=== PATIENT | female | born 1975 ===

== ENCOUNTER 2017-05-21 06:46 | Day surgery (SDC) | payer OTHER ==
[2017-05-17 10:07] VITALS: BMI 42.9
[2017-05-21] MEDS ORDERED: Silver Nitrate Topical - Stick ONE (07:10)
[2017-05-21] MEDS ORDERED: Strong Iodine Topical Sol. 5%-10% ONE (07:10)
[2017-05-21] MEDS ORDERED: Ferric Subsulfate Sol(60 mL) ONE (07:11)
[2017-05-21] MEDS ORDERED: ACETIC ACID 3% 30 ML LIQUID MC ONE (07:11)
[2017-05-21 07:19] VITALS: O2SAT 99
[2017-05-21 08:14] LABS: BASO # 0.1 K/uL (0.0-0.2); BASO % 0.8 % (0.0-2.0); EOS # 0.2 K/uL (0.0-0.7); EOS % 2.3 % (0.0-4.0); HEMATOCRIT 35.9 % (34.0-47.0); LYMPH # 2.7 K/uL (1.0-4.3); LYMPH % 30.9 % (20.0-40.0); MEAN CELL VOLUME 78.6 fl (81.0-99.0); MEAN CORPUSCULAR HEMOGLOBIN 25.4 pg (27.0-31.0); MEAN CORPUSCULAR HGB CONC 32.4 g/dL (33.0-37.0); MEAN PLATELET VOLUME 7.7 fl (7.2-11.7); MONO # 0.5 K/uL (0.0-0.8); MONO % 6.2 % (0.0-10.0); NEUT # 5.2 K/uL (1.8-7.0); NEUT % 59.8 % (50.0-75.0); RED CELL DISTRIBUTION WIDTH 15.1 % (11.5-14.5); WHITE BLOOD COUNT 8.6 K/uL (4.8-10.8)
[2017-05-21 08:40] LABS: BLOOD UREA NITROGEN 17 mg/dl (7-17); CALCIUM 8.8 mg/dL (8.4-10.2); CARBON DIOXIDE 23 mmol/L (22-30); CHLORIDE 106 mmol/L (98-107); GFR AFRICAN-AMERICAN > 60; GLUCOSE,RANDOM 105 mg/dL (65-105); POTASSIUM 4.5 MMOL/L (3.6-5.0); SODIUM 136 mmol/l (132-148)
[2017-05-21] MEDS ORDERED: Propofol 10 mg/ml Inj (20 ML) ONE (08:51)
[2017-05-21] MEDS ORDERED: Midazolam 2 MG/2 ML VIAL ONE (08:52)
[2017-05-21] MEDS ORDERED: Lactated Ringer's 1,000 ML IV ONE (09:05)
--- NOTE | 2017-05-21 09:10 | CP.SDSHP ---
Same Day Surgery H & P - History Proposed Procedure: LEEP Pre-Op Diagnosis: cervical dysplasia - Allergies Allergies: Allergies No Known Allergies Allergy (Verified 05/17/17 10:07) - Physical Exam Vital Signs: Vital Signs 05/21/17 05/21/17 06:57 07:17 Temperature 98.4 F Pulse Rate 68 68 Respiratory 18 Rate Blood Pressure 138/86 O2 Sat by Pulse 99 Oximetry Mental Status: Alert & Oriented x3 Neuro: WNL Heart: WNL Lungs: WNL GI: WNL - {Optional Preform as Required} Breast: WNL Abdomen: WNL FIELD NATURALIST: WNL - Impression Pt. Evaluated Today:Candidate for Anesthesia & Procedure: Yes - Date & Time Date: 05/21/17 Short Stay Discharge - Short Stay Discharge Admitting Diagnosis/Reason for Visit: R87.810 Disposition: HOME/ ROUTINE Referrals: Raysa Schreiber MD [Primary Care Provider] - Follow-up: in 2 wks Progress Note/Discharge Note with Instructions: pt to be discharge when meets floor criteria
[2017-05-21] MEDS ORDERED: Strong Iodine Topical Sol. 5%-10% TOP ONE (09:33)
[2017-05-21] MEDS ORDERED: HYDROmorphone 0.5 mg/0.5 ml ISec IVP PRN (10:01)
[2017-05-21] MEDS ORDERED: Oxycodone/Acetaminophen 5/325 mg Tab PO PRN (10:10)
[2017-05-21 11:10] VITALS: BP 134/78
[2017-05-21 11:13] VITALS: PULSE 58; RESP 20; TEMP 97.7
--- NOTE | 2017-05-21 11:35 | RAD ---
HISTORY: PRE-OP COMPARISON: No prior. TECHNIQUE: Chest PA and lateral FINDINGS: LUNGS: No active pulmonary disease. PLEURA: No significant pleural effusion identified. No pneumothorax apparent. CARDIOVASCULAR: Normal. OSSEOUS STRUCTURES: No significant abnormalities. VISUALIZED UPPER ABDOMEN: Normal. OTHER FINDINGS: None. IMPRESSION: No active disease.
--- NOTE | 2017-05-21 22:21 | OP ---
PROCEDURE DATE: 05/21/2017 SURGEON: Radha Carlisle MD PREOPERATIVE DIAGNOSIS: Cervical dysplasia. POSTOPERATIVE DIAGNOSIS: Cervical dysplasia. PROCEDURE: LEEP procedure and ECC. ANESTHESIA: Berto Crawford MD, LMA. URINE OUTPUT: 200 mL of clear urine. ESTIMATED BLOOD LOSS: Negligible. TOTAL FLUID INPUT: 500 mL of lactated Ringer's. PATHOLOGY SPECIMEN: Cervical specimen. COMPLICATIONS: None. CONDITION: Stable. DESCRIPTION OF PROCEDURE: After all consents were signed and all questions were answered, the patient was brought to the OR and placed in dorsal lithotomy position. IV fluids were running. The patient was placed under anesthesia without difficulty. A grounding leg pad was placed on the patient's leg. The patient prepped and draped in the normal saline fashion. A red rubber-tip catheter was used to drain the bladder. Clear urine was noted and insulated speculum was placed in the patient's vagina. Smoke evacuator tubing was connected to the speculum. ECC specimen was obtained and sent for pathology. A Lugol solution was then applied to the cervix to further outline the LEEP field. A LEEP loop of 12 mm x 15 mm to the exocervix was selected. The LEEP procedure was performed excising the cone portion of the cervix extending beyond the margins of the Lugol's unstained area without issues and the specimen was placed in the formalin jar after tagging at 12 o'clock position. A ball-tip cautery was used to cauterize any spots that were bleeding. The patient was hemostatic at the end of the procedure. All instruments were removed from the vagina. All counts were correct. Blood loss was negligible. Reinspection prior to ending the procedure showed that the patient was hemostatic, and the procedure was terminated. The patient was awoken from anesthesia without difficulty, and taken to the recovery room in stable condition. Radha Carlisle MD
== END 2017-05-21 11:35 | disposition home or self-care (01) ==
LOC: H.OPSURG 06:46
PROVIDERS: ATTEND Obstetrics & Gynecology
DX: R87.810 Cervical high risk human papillomavirus (HPV) DNA test positive (principal); E11.9 Type 2 diabetes mellitus without complications; F17.200 Nicotine dependence, unspecified, uncomplicated; M54.9 Dorsalgia, unspecified; M19.90 Unspecified osteoarthritis, unspecified site
CPT/HCPCS: 36415; 57522; 71020; 80048; 82948; 85025; 88305; J2001; J2250; J2405; J2704; J3010; J7030; J7120

== ENCOUNTER 2017-11-07 14:46 | Emergency (ER) | payer BC ==
[2017-11-07 14:46] VITALS: BMI 42.9
[2017-11-07 14:53] VITALS: TEMP 98.5; O2SAT 98
[2017-11-07 16:10] VITALS: RESP 18
--- NOTE | 2017-11-07 16:36 | ED PDOC ---
HPI: Hypertension/Hypotension Time Seen by Provider: 11/07/17 15:53 Chief Complaint (Nursing): High Blood Pressure Chief Complaint (Provider): High Blood Pressure History Per: Patient History/Exam Limitations: no limitations Onset/Duration Of Symptoms: Mins ([employer]) Current Symptoms Are (Timing): Better Additional Complaint(s): Karen is a 42 y/o female with a history of non-insulin dependent diabetes who presents to the ED after feeling dizzy and checking her blood pressure at work. Patient states her bp was high but doesn't remember the numbers. On arrival at ED, patient's blood pressure is 134/80 and she feels fine with no symptoms. PMD: Raysa Schreiber Past Medical History Reviewed: Historical Data, Nursing Documentation, Vital Signs Vital Signs: Last Vital Signs Temp 98.5 F 11/07/17 14:51 Pulse 86 11/07/17 16:10 Resp 18 11/07/17 16:10 BP 135/84 11/07/17 16:10 Pulse Ox 98 11/07/17 14:51 - Medical History PMH: Anemia, Arthritis, Diabetes Denies: Chronic Kidney Disease - Family History Family History: States: Unknown Family Hx - Home Medications Home Medications: Ambulatory Orders Medication Instructions Recorded metFORMIN [glucOPHAGE] 500 mg PO BID 05/21/17 oxyCODONE/Acetaminophen [Percocet 1 tab PO Q4 PRN 05/21/17 5/325 mg Tab] - Allergies Allergies/Adverse Reactions: Allergies Allergy/AdvReac Type Severity Reaction Status Date / Time No Known Allergies Allergy Verified 11/07/17 14:50 Review of Systems ROS Statement: Except As Marked, All Systems Reviewed And Found Negative Cardiovascular: Positive for: Other (high blood pressure, resolved) Neurological: Positive for: Dizziness (resolved) Physical Exam - Reviewed Nursing Documentation Reviewed: Yes Vital Signs Reviewed: Yes - Physical Exam Appears: Positive for: Well, Non-toxic, No Acute Distress Head Exam: Positive for: ATRAUMATIC, NORMOCEPHALIC Skin: Positive for: Normal Color, Warm, Dry Eye Exam: Positive for: EOMI, Normal appearance, PERRL Neck: Positive for: Normal, Painless ROM, Supple Cardiovascular/Chest: Positive for: Regular Rate, Rhythm. Negative for: Murmur Respiratory: Positive for: Normal Breath Sounds. Negative for: Respiratory Distress Gastrointestinal/Abdominal: Positive for: Normal Exam, Soft. Negative for: Tenderness Back: Positive for: Normal Inspection Extremity: Positive for: Normal ROM. Negative for: Pedal Edema, Deformity Neurologic/Psych: Positive for: Alert, Oriented. Negative for: Motor/Sensory Deficits - ECG ECG Rhythm: Positive for: Normal QRS, Normal ST Segment, Sinus Rhythm. Negative for: ST/T Changes Rate: 92 (bpm) O2 Sat by Pulse Oximetry: 98 Medical Decision Making Medical Decision Making: Time: 15:53 Initial Impression: Resolved High Blood Pressure Initial Plan: --EKG --EKG is normal. Patient is stable for discharge home. Scribe Attestation: Documented by Jeffry Ruiz, acting as a scribe for Dr. Roman Preston MD. Provider Scribe Attestation: All medical record entries made by the Scribe were at my direction and personally dictated by me. I have reviewed the chart and agree that the record accurately reflects my personal performance of the history, physical exam, medical decision making, and the department course for this patient. I have also personally directed, reviewed, and agree with the discharge instructions and disposition. Disposition - Clinical Impression Clinical Impression: Hypertension - Patient ED Disposition Is Patient to be Admitted: No Counseled Patient/Family Regarding: Studies Performed, Diagnosis, Need For Followup - Disposition Disposition: Routine/Home Disposition Time: 16:30 Condition: IMPROVED Additional Instructions: follow up with your primary doctor within one week return to the ED with any worsening or concerning symptoms Instructions: Hypertension (ED) Forms: [employer] (Bangladeshi)
[2017-11-07 16:44] VITALS: BP 130/70; PULSE 78
== END 2017-11-07 16:46 | disposition home or self-care (01) ==
LOC: H.ER 14:46
DX: I10 Essential (primary) hypertension (principal); E11.9 Type 2 diabetes mellitus without complications; Z79.84 Long term (current) use of oral hypoglycemic drugs

== ENCOUNTER 2018-05-03 06:36 | Observation (INO) | payer OTHER ==
[2018-04-04 11:16] VITALS: BMI 46.3
[2018-05-03] MEDS ORDERED: Chlorhexidine Gluconate 2OZ GEL TP ONE (07:17)
[2018-05-03] MEDS ORDERED: Midazolam 2 MG/2 ML VIAL ONE (07:23)
[2018-05-03] MEDS ORDERED: ePHEDrine 50 mg/ml Inj ONE (07:23)
[2018-05-03] MEDS ORDERED: Succinylcholine 200 mg/10 ml Inj IV ONE (07:23)
[2018-05-03] MEDS ORDERED: Rocuronium 10 mg/ml (5 ml) ONE ×3 (07:23→09:24)
[2018-05-03] MEDS ORDERED: Propofol 10 mg/ml Inj (20 ML) ONE (07:23)
[2018-05-03] MEDS ORDERED: Phenylephrine 10 mg/ml Inj ONE (07:24)
[2018-05-03] MEDS ORDERED: Lactated Ringer's 1,000 ML IV ONE ×3 (08:05→09:10)
[2018-05-03 08:22] LABS: BASO # 0.1 K/uL (0.0-0.2); BASO % 0.6 % (0.0-2.0); EOS # 0.2 K/uL (0.0-0.7); EOS % 1.9 % (0.0-4.0); HEMOGLOBIN 12.4 g/dL (12.0-16.0); LYMPH # 3.1 K/uL (1.0-4.3); LYMPH % 34.9 % (20.0-40.0); MEAN CELL VOLUME 78.3 fl (81.0-99.0); MEAN CORPUSCULAR HGB CONC 33.3 g/dL (33.0-37.0); MEAN PLATELET VOLUME 7.7 fl (7.2-11.7); MONO # 0.6 K/uL (0.0-0.8); MONO % 6.4 % (0.0-10.0); NEUT % 56.2 % (50.0-75.0); NRBC % 0.1 % (0.0-0.0); RBC 4.74 Mil/uL (3.80-5.20); WHITE BLOOD COUNT 8.9 K/uL (4.8-10.8)
[2018-05-03] MEDS: Bupivacaine HCl 0.25% PF (30 ml) Inj ONE ×2 (08:37→09:00)
[2018-05-03] MEDS ORDERED: Morphine 1 mg/ml preservative-free Inj(Duramorph) ONE (08:46)
[2018-05-03] MEDS ORDERED: Sodium Chloride 0.9% 1,000 ML IV ONE (09:45)
[2018-05-03] MEDS ORDERED: Sevoflurane - Inhalation Anesthetic Liq (250 ml) ONE (10:48)
[2018-05-03] MEDS ORDERED: Neostigmine 1:1000 (1 mg/ml) Inj ONE (11:10)
[2018-05-03] MEDS ORDERED: HYDROmorphone 1 mg/ml ISec IVP PRN (11:43)
[2018-05-03] MEDS ORDERED: Naloxone 0.4 mg/ml Inj (Adult) IVP PRN (11:45)
[2018-05-03] MEDS ORDERED: Oxycodone/Acetaminophen 5/325 mg Tab PO PRN (16:11)
[2018-05-03] MEDS: cefOXitin IV 1 gm in Dextrose 1 GM/50 ML BAG IVPB SCH (17:10)
[2018-05-04] MEDS: cefOXitin IV 1 gm in Dextrose 1 GM/50 ML BAG IVPB SCH ×2 (00:17→08:06)
[2018-05-04 07:45] LABS: HEMOGLOBIN 10.6 g/dL (12.0-16.0); MEAN CELL VOLUME 78.7 fl (81.0-99.0); RBC 4.07 Mil/uL (3.80-5.20); RED CELL DISTRIBUTION WIDTH 15.7 % (11.5-14.5); WHITE BLOOD COUNT 8.5 K/uL (4.8-10.8)
[2018-05-04 11:31] VITALS: RESP 18
[2018-05-04 14:03] VITALS: BP 118/72; PULSE 65; TEMP 97.8; O2SAT 99
--- NOTE | 2018-05-06 08:29 | OP ---
Copied To: Germán Wagoner MD Attending MD: Germán Wagoner MD PROCEDURE DATE: 05/03/18 PREOPERATIVE DIAGNOSES: Persistent cervical intraepithelial neoplasia. The patient desired definitive treatment. POSTOPERATIVE DIAGNOSES: Persistent cervical intraepithelial neoplasia. The patient desired definitive treatment. OPERATION PERFORMED: Robotic-assisted hysterectomy, cystoscopy with stent placement. SURGEON: Germán Wagoner MD DIRECTOR OF GIFT PLANNING: Roddy Gaytan MD. She was instrumental in the care of the patient. She helped create exposure. She helped obtain hemostasis. She was helpful in extracting the specimen and closure of the patient. The procedure would not have been possible without her assistance. ESTIMATED BLOOD LOSS: 150 mL. INTRAVENOUS FLUID INTAKE: Patient received approximately 2500 mL of D5 LR intraoperatively. URINE OUTPUT: Approximately 500 mL of clear urine. OPERATIVE FINDINGS: Normal appearing uterus, tubes, and ovaries. On cystoscopy, the dome of the bladder was noted to be intact. We noted bilateral clear efflux of urine. DESCRIPTION OF PROCEDURE: After informed consent was obtained, the patient was taken to the operating room. She was given general anesthesia. She was then prepped and draped in the normal sterile fashion. Attention was then turned to the urethra where a cystoscope was inserted into the bladder. Both right and left ureteral orifices were identified. The right orifice was stented. 5 mL of ICG green was injected. A similar procedure was performed on the left. The cystoscope was then removed. Attention was then turned to the vagina where the cervix is identified and dilated. A VCare uterine manipulator was then inserted into the uterine cavity as a means to manipulate the uterus. Attention was then turned to the urethra where a Hammond catheter was inserted to monitor the patient's urinary output. We then proceeded to the abdomen where approximately 5 cm superior to the umbilicus, Marcaine was infused. An 8-mm incision was made. The abdomen was tented upward and a Veress needle was inserted into the abdominal cavity. Placement was confirmed with a fluid-filled syringe. The abdomen was then insufflated to 15 mmHg. The Veress needle was removed and an 8-mm robotic port was introduced. Placement was confirmed with the laparoscope. The abdomen was then surveyed with the findings noted above. Attention was then turned to approximately 5 cm superior to the right anterior iliac crest. Marcaine was infused. An 8-mm incision was made and robotic port was introduced into the abdominal cavity. Similar procedure was performed on the left. Approximately 10 cm right and lateral to the umbilicus, an 8-mm incision was made and robotic port was introduced under direct visualization. Attention was then turned to the left side of the abdomen where 5 mm incision was made and a 5 mm port was introduced into the abdominal cavity. The patient was then placed in steep Trendelenburg. The table was lowered and the robot was brought along the patient's side and docked without complication. The instruments used for the surgery were PK dissector, Russ Suture Cut, a ProGrasp, and a scissors. I then broke scrub and proceeded to the surgical console. Attention was turned to the utero-ovarian ligament. It was serially coagulated, and then transected with the scissors. Attention was then turned to the round ligament which in similar fashion was serially coagulated and transected with the scissors. The anterior aspect of the vesicouterine peritoneum was then undermined with PK dissector down to the level of the VCare cup anteriorly. The posterior peritoneum was then undermined with PK dissector, then transected with the scissors down to the level of the VCare cup posteriorly. The uterine arteries were then skeletonized and then serially coagulated with PK dissector. The ureter was clearly visualized using the Firefly technology. Attention was then turned to the left side of the abdomen, which in similar fashion, the utero-ovarian ligament was identified, grasped with PK dissector and serially coagulated. The round ligament was then serially coagulated, then transected with the scissors. The vesicouterine peritoneum was then undermined with PK and scored with the scissors down to the level of the VCare cup anteriorly. The posterior aspect of the peritoneum in a similar fashion was undetermined with PK and scored with the scissor down to the level of the VCare cup posteriorly. The uterine arteries were then skeletonized and serially coagulated. Firefly was activated and the ureter was identified inferiorly. The cup was then identified, anteriorly, posteriorly, and laterally. The cervix and uterus were amputated from the vagina using the Hot Liv. The specimen was then delivered vaginally. The cuff was closed with 2-0 Vicryl barbed suture. The abdomen was then copiously irrigated. The irrigant was removed with a suction device. Hemostasis was noted. All instruments were then removed from the abdomen. The patient was undocked from the robot. Attention was then turned to the urethra. The cystoscope was inserted. The dome of the bladder was noted to be intact. Bilateral efflux of urine was noted. The stenting was performed due to the patient's body habitus. Patient has morbid obesity and the ICG green was instrumental in localization of the uterus. Attention was then turned to the abdomen where the incisions were closed with 3-0 Biosyn and Dermabond. All sponge, lap, needle, and instrument counts were correct x2 and the patient was taken to the recovery room in awake and stable condition. Germán Wagoner MD
== END 2018-05-04 13:50 | disposition home or self-care (01) ==
LOC: H.OPSURG 06:36 → H.PEDS 16:15
PROVIDERS: ADMIT Obstetrics & Gynecology Gynecology; ATTEND Obstetrics & Gynecology Gynecology
DX: D06.0 Carcinoma in situ of endocervix (principal); E11.9 Type 2 diabetes mellitus without complications; I10 Essential (primary) hypertension; D64.9 Anemia, unspecified
CPT/HCPCS: 36415; 52000; 58543; 82948; 85025; 85027; 86850; 86900; 88305; C1729; G0378; J0330; J0690; J0694; J1885; J2001; J2250; J2270; J2370; J2405; J2704; J2710; J3010; J7030; J7120